=== PATIENT | male | born 1940 | race Caucasian/White ===

== ENCOUNTER 2017-09-07 05:42 | Inpatient (IN) | payer BC ==
[2017-09-07] MEDS ORDERED: CEFAZOLIN 2 GM/50 ML (PMX) 50 ML (FOR WT < 120 KG) IVPB (06:00)
[2017-09-07] MEDS: TRANEXAMIC ACID 1,000 MG in D5W 100 ML AT CLOSURE X1 IVPB (06:00)
[2017-09-07] MEDS ORDERED: TRANEXAMIC ACID 1,000 MG in D5W 100 ML AT INCISION X1 IVPB (06:00)
[2017-09-07] MEDS: LACTATED RINGER'S 1,000 ML IV (06:00)
[2017-09-07 06:28] LABS: ADD MAN DIFF? NO
[2017-09-07 06:32] LABS: BASOPHILS % 0.7 % (0.0-2.0); EOSINOPHILS # 0.3 10^3/ul (0.0-0.5); EOSINOPHILS % 4.4 % (0.0-7.0); HEMATOCRIT 37.8 % (42.0-52.0); HEMOGLOBIN 12.1 g/dl (14.0-18.0); LYMPHOCYTES # 1.2 10^3/ul (0.8-2.9); LYMPHOCYTES % 20.3 % (15.0-51.0); MEAN CORPUSCULAR HEMOGLOBIN 30.3 pg (29.0-33.0); MEAN CORPUSCULAR VOLUME 94.5 fl (82.0-101.0); MEAN PLATELET VOLUME 9.4 fl (7.4-10.4); MONOCYTE # 0.8 10^3/ul (0.3-0.9); MONOCYTES % 13.3 % (0.0-11.0); NEUTROPHIL # 3.6 10^3/ul (1.6-7.5); NEUTROPHILS % 60.8 % (39.0-77.0); PLATELET COUNT 178 10^3/UL (140-415); RED CELL DISTRIBUTION WIDTH 14.3 % (11.5-14.5)
[2017-09-07 06:51] LABS: ALANINE AMINOTRANSFERASE 19 IU/L (13-69); ALBUMIN 3.6 g/dl (3.3-4.9); ALBUMIN/GLOBULIN RATIO 1.09; ALKALINE PHOSPHATASE 85 IU/L (42-121); ANION GAP 14 (8-16); ASPARTATE AMINO TRANSFERASE 20 IU/L (15-46); BILIRUBIN,INDIRECT 0.2 mg/dl (0-1.1); BILIRUBIN,TOTAL 0.2 mg/dl (0.2-1.3); CARBON DIOXIDE 29 mmol/L (21-31); CHLORIDE 105 mmol/L (97-110); GLUCOSE 111 mg/dl (70-220); TOTAL PROTEIN 6.9 g/dl (6.1-8.1)
[2017-09-07 06:52] LABS: INR 1.04; PARTIAL THROMBOPLASTIN TIME 33.5 Sec (25.0-35.0); PROTIME 13.7 Sec (11.9-14.9); PT RATIO 1.1
[2017-09-07] MEDS ORDERED: SUCCINYLCHOLINE CHLORIDE 100 MG/5 ML SYG IV (07:00)
[2017-09-07] MEDS ORDERED: CEFAZOLIN 1 GM INJ (07:00)
[2017-09-07] MEDS ORDERED: LIDOCAINE 2% (SDV) 5 ML INJ (07:00)
[2017-09-07 07:11] LABS: BLOOD UREA NITROGEN 34 mg/dl (7-20); CALCIUM 8.6 mg/dl (8.4-10.2); CREATININE 1.29 mg/dl (0.61-1.24); SODIUM 144 mmol/L (135-144)
[2017-09-07] MEDS ORDERED: ROCURONIUM 50 MG INJ (07:31)
[2017-09-07] MEDS ORDERED: ETOMIDATE 20 MG INJ (07:31)
[2017-09-07] MEDS ORDERED: MIDAZOLAM 1 MG/ML 2 ML INJ (07:31)
[2017-09-07] MEDS ORDERED: ROPIVACAINE 0.5 % 30 ML VIAL ×2 (07:32→10:26)
[2017-09-07] MEDS ORDERED: DEXAMETHASONE 4 MG/ML 1 ML INJ ×3 (07:32→10:26)
[2017-09-07] MEDS ORDERED: ACETAMINOPHEN 1000MG/100ML IV 100 ML ×2 (08:31→10:08)
[2017-09-07] MEDS ORDERED: FAMOTIDINE 20 MG INJ (08:31)
[2017-09-07] MEDS ORDERED: ONDANSETRON 4 MG INJ (08:31)
[2017-09-07] MEDS ORDERED: EPHEDrine SULFATE 50 MG/5 ML SYG (08:32)
[2017-09-07] MEDS ORDERED: PHENYLephrine (100 MCG/ML) 5ML SYG (08:32)
[2017-09-07] MEDS: POLYMYXIN/BACITRACIN 1L IRRIG (08:52)
[2017-09-07] MEDS ORDERED: hydrALAzine 20 MG INJ (08:54)
[2017-09-07] MEDS ORDERED: SUGAMMADEX SODIUM 200 MG/2 ML VIAL IV (10:04)
[2017-09-07] MEDS ORDERED: HYDROmorphONE (0.2 MG/ML) 10ML SYG IV ×2 (10:20→10:30)
[2017-09-07] MEDS ORDERED: TRIMETHOBENZAMIDE 100 MG/ML VIAL IM (10:30)
[2017-09-07] MEDS ORDERED: HYDROCODONE/APAP (5/325) TAB PO (10:30)
[2017-09-07] MEDS ORDERED: BISACODYL 10 MG SUPP PR (10:30)
[2017-09-07] MEDS ORDERED: DIPHENHYDRAMINE 50 MG INJ IV (10:30)
[2017-09-07] MEDS ORDERED: MAGNESIUM HYDROXIDE 30ML CUP PO (10:30)
[2017-09-07] MEDS ORDERED: ALBUTEROL 0.083% (NEB) 2.5 MG/3 ML AMP HHN (10:30)
[2017-09-07] MEDS ORDERED: NA PHOSPHATE/BIPHOS 133 ML ENEMA PR (10:30)
[2017-09-07] MEDS ORDERED: hydrALAzine 20 MG INJ IV (10:30)
[2017-09-07] MEDS ORDERED: EPHEDrine SULFATE 50 MG/5 ML SYG IV (10:30)
[2017-09-07] MEDS ORDERED: LABETALOL HCL 20MG INJ IV (10:30)
[2017-09-07] MEDS ORDERED: ONDANSETRON 4 MG INJ IV (10:30)
[2017-09-07] MEDS ORDERED: FENTAnyl 50 MCG/ML VIAL IV ×3 (10:30)
[2017-09-07] MEDS ORDERED: NACL 0.9% 3 ML SYG IV (10:30)
[2017-09-07] MEDS ORDERED: CEFAZOLIN 1 GM/50 ML (PMX) 50 ML IVPB (10:43)
[2017-09-07] MEDS: HYDROmorphONE (0.2 MG/ML) 10ML SYG IV ×4 (10:45→11:07)
[2017-09-07] MEDS: ONDANSETRON 4 MG INJ IV (10:45)
[2017-09-07] MEDS: MEPERIDINE 25 MG INJ IV (10:45)
[2017-09-07] MEDS: CEFAZOLIN 1 GM/50 ML (PMX) 50 ML IVPB ×2 (10:46→18:55)
[2017-09-07] MEDS: DIPHENHYDRAMINE 50 MG INJ IV (10:51)
[2017-09-07] MEDS: KETOROLAC 30 MG INJ IV (10:53)
[2017-09-07 11:23] LABS: ADD MAN DIFF? NO
[2017-09-07 11:28] LABS: ABNORMAL IP MESSAGE 1; BASOPHILS % 0.1 % (0.0-2.0); EOSINOPHILS % 0.1 % (0.0-7.0); HEMATOCRIT 38.2 % (42.0-52.0); HEMOGLOBIN 12.3 g/dl (14.0-18.0); LYMPHOCYTES # 0.5 10^3/ul (0.8-2.9); LYMPHOCYTES % 4.3 % (15.0-51.0); MEAN CORPUSCULAR HEMOGLOBIN 30.4 pg (29.0-33.0); MEAN CORPUSCULAR HGB CONC 32.2 g/dl (32.0-37.0); MEAN CORPUSCULAR VOLUME 94.3 fl (82.0-101.0); MEAN PLATELET VOLUME 9.6 fl (7.4-10.4); MONOCYTE # 0.1 10^3/ul (0.3-0.9); NEUTROPHIL # 10.2 10^3/ul (1.6-7.5); NEUTROPHILS % 93.7 % (39.0-77.0); PLATELET COUNT 176 10^3/UL (140-415); POSITIVE DIFF @See below; RED BLOOD COUNT 4.05 10^6/ul (4.70-6.10); RED CELL DISTRIBUTION WIDTH 14.2 % (11.5-14.5)
[2017-09-07 11:28] LABS: WHITE BLOOD COUNT 10.9 10^3/ul (4.8-10.8)
[2017-09-07] MEDS: KETOROLAC 15 MG INJ IV (11:34)
[2017-09-07 11:47] LABS: ANION GAP 14 (8-16); BLOOD UREA NITROGEN 29 mg/dl (7-20); CALCIUM 7.8 mg/dl (8.4-10.2); CARBON DIOXIDE 24 mmol/L (21-31); CHLORIDE 106 mmol/L (97-110); CREATININE 1.06 mg/dl (0.61-1.24); GLUCOSE 171 mg/dl (70-220); POTASSIUM 4.1 mmol/L (3.5-5.1); SODIUM 140 mmol/L (135-144)
[2017-09-07] MEDS ORDERED: ISOSORBIDE MONONITRATE(SR)30 MG TAB PO (12:00)
[2017-09-07] MEDS ORDERED: NITROGLYCERIN (SL) 0.4 MG TAB SL (12:00)
[2017-09-07] MEDS: TAMSULOSIN (SR) 0.4 MG CAP PO (12:47)
[2017-09-07] MEDS: oxyCODONE (CR) 15 MG TAB [oxyCONTIN] PO ×2 (12:47→22:18)
[2017-09-07] MEDS ORDERED: BUPROPION (XL) 150 MG TAB PO (13:00)
[2017-09-07] MEDS ORDERED: oxyCODONE (CR) 15 MG TAB [oxyCONTIN] PO (21:00)
[2017-09-07] MEDS: GABAPENTIN 300 MG CAP PO (21:10)
[2017-09-07] MEDS: ESCITALOPRAM 10 MG TAB PO (21:10)
[2017-09-07] MEDS: SENNA/DOCUSATE NA (8.6MG/50MG) TAB PO (21:10)
[2017-09-07] MEDS: ATORVASTATIN 10 MG TAB PO (21:10)
[2017-09-08] MEDS: CEFAZOLIN 1 GM/50 ML (PMX) 50 ML IVPB (02:47)
[2017-09-08] MEDS: HYDROCODONE/APAP (5/325) TAB PO (05:00)
[2017-09-08 05:03] LABS: ADD MAN DIFF? NO
[2017-09-08 05:06] LABS: BASOPHILS % 0.1 % (0.0-2.0); HEMATOCRIT 36.8 % (42.0-52.0); HEMOGLOBIN 11.8 g/dl (14.0-18.0); LYMPHOCYTES # 0.9 10^3/ul (0.8-2.9); LYMPHOCYTES % 7.2 % (15.0-51.0); MEAN CORPUSCULAR HEMOGLOBIN 29.9 pg (29.0-33.0); MEAN CORPUSCULAR HGB CONC 32.1 g/dl (32.0-37.0); MEAN CORPUSCULAR VOLUME 93.4 fl (82.0-101.0); MEAN PLATELET VOLUME 10.1 fl (7.4-10.4); MONOCYTE # 1.2 10^3/ul (0.3-0.9); NEUTROPHIL # 9.9 10^3/ul (1.6-7.5); NEUTROPHILS % 82.3 % (39.0-77.0); PLATELET COUNT 179 10^3/UL (140-415); RED BLOOD COUNT 3.94 10^6/ul (4.70-6.10); RED CELL DISTRIBUTION WIDTH 14.2 % (11.5-14.5)
[2017-09-08 05:35] LABS: PHOSPHORUS 3.1 mg/dl (2.5-4.9)
[2017-09-08 05:35] LABS: MAGNESIUM 2.1 mg/dl (1.7-2.5)
[2017-09-08] MEDS: LEVOTHYROXINE 25 MCG TAB PO (06:07)
[2017-09-08] MEDS: oxyCODONE (CR) 15 MG TAB [oxyCONTIN] PO ×2 (06:07→14:36)
[2017-09-08] MEDS ORDERED: LEVOTHYROXINE 25 MCG TAB PO (07:00)
[2017-09-08] MEDS: SENNA/DOCUSATE NA (8.6MG/50MG) TAB PO (09:00)
[2017-09-08] MEDS: BUPROPION (XL) 150 MG TAB PO (09:00)
[2017-09-08] MEDS: MULTIVITAMINS/MINERALS TAB PO (09:00)
[2017-09-08] MEDS: KETOROLAC 15 MG INJ IV (09:16)
[2017-09-08] MEDS: BETA CAROTENE/VIT C/E/MIN TAB PO (09:19)
[2017-09-08] MEDS: ISOSORBIDE MONONITRATE(SR)30 MG TAB PO (09:19)
[2017-09-08] MEDS: ALLOPURINOL 100 MG TAB PO (09:19)
[2017-09-08] MEDS: ASPIRIN 81 MG TAB PO (09:19)
[2017-09-08] MEDS: HYDROCHLOROTHIAZIDE 12.5 MG CAP PO (09:20)
[2017-09-08] MEDS: BISACODYL (EC) 5 MG TAB PO (09:20)
[2017-09-08] MEDS: ESCITALOPRAM 10 MG TAB PO (09:20)
[2017-09-08] MEDS: APIXABAN 5 MG TABLET PO (09:20)
[2017-09-08] MEDS: TAMSULOSIN (SR) 0.4 MG CAP PO (14:35)
[2017-09-09] MEDS ORDERED: MAGNESIUM HYDROXIDE 30ML CUP PO (21:00)
== END 2017-09-08 14:56 | disposition home health service (06) | DRG 483 ==
LOC: REC 05:42 → MS1 11:20
PROC: 0RRJ0JZ Replacement of Right Shoulder Joint with Synthetic Substitute, Open Approach (ICD-10-PCS; principal; 2017-09-07 07:30)
DX: M87.821 Other osteonecrosis, right humerus (principal); I25.10 Atherosclerotic heart disease of native coronary artery without angina pectoris; M10.9 Gout, unspecified; I10 Essential (primary) hypertension; J44.9 Chronic obstructive pulmonary disease, unspecified; Z79.02 Long term (current) use of antithrombotics/antiplatelets
CPT/HCPCS: 71045; 80048; 80053; 83735; 84100; 85025; 85610; 85730; 86850; 86900; 86901; 87081; 88304; 88311; 97161; 97165; 97535